=== PATIENT | female | born 1975 | race Caucasian/White ===

== ENCOUNTER 2019-04-05 06:20 | Day surgery (SDC) | payer OTHER, MEDICAID, SELFPAY ==
[2019-04-02 13:48] VITALS: BMI 44.1
[2019-04-05] VITALS (8 sets, daily range): BP systolic 117–157; BP diastolic 72–99; PULSE 62–90; RESP 15–17; TEMP 36–36.4; O2SAT 88–100; BMI 44.0
--- NOTE | 2019-04-05 | PATH_ITS ---
[facility] [place] Accession Number: [id number] . 01 Material submitted: . PART A: cervix - ANTERIOR CERVIX LEEP PART B: cervix - POSTERIOR CERVIX LEEP PART C: cervix - LEFT ANTERIOR CERVIX LEEP PART D: cervix - RIGHT ANTERIOR CERVIX LEEP . 01 Clinical history: . MILD CERVICAL DYSPLASIA . 02 Diagnosis: A. Anterior Cervix, LEEP Biopsy: Focal, mild involvement by low-grade squamous intraepithelial lesion/CARLOS-1. The apparent surgical margins are negative for dysplasia. Negative for high-grade dysplasia and invasive tumor. A very small focus of transformation zone is present in the LEEP biopsy. . B. Posterior Cervix, LEEP, Biopsy: Squamous mucosa with reactive changes; negative for squamous dysplasia or malignancy. Patchy mucosal erosion is present. No transformation zone is identified in this LEEP Biopsy: . C. Left Anterior Cervix, LEEP Biopsy: Predominantly stromal tissue with mucosal erosion and electrocautery artifact. Scant attached squamous mucosa and a focus of detached squamous epithelium are negative for squamous dysplasia or malignancy. Tissue margins are negative for dysplasia or malignancy. . D. Right Anterior Cervix, LEEP Biopsy: Focal cytologic atypia suggestive of, but not diagnostic of, low-grade squamous intraepithelial lesion/CARLOS-1 involves detached squamous epithelial fragments; extensive electrocautery artifact is present and obscuring. Negative for high-grade dysplasia or malignancy. No intact transformation zone is identified in the LEEP biopsy. MRV 04/08/2019 1438 Local . 02 Electronically signed: . Tegan Keene MD, Pathologist NPI- [id number] . 01 Gross description: . (A) Received in formalin, labeled anterior cervix LEEP, is an unoriented piece of cervical tissue (1.7 x 1.0 x 0.3 cm) with flowers-white smooth shiny mucosa. No nodules, masses or lesions are identified. The tissue cannot be oriented; therefore, the resection margin is inked blue. Serially sectioned and entirely submitted in cassette A1. (B) Received in formalin, labeled posterior cervix LEEP, is an unoriented piece of cervical tissue (1.1 x 0.8 x 0.2 cm) with flowers-white smooth shiny mucosa. No nodules, masses or lesions are identified. The tissue cannot be orientated; therefore, the resection margin is inked blue. Serially sectioned and entirely submitted in cassette B1. (C) Received in formalin, labeled left anterior cervix LEEP, is an unoriented piece of cervical tissue (0.8 x 0.5 x 0.2 cm) with flowers-white smooth shiny mucosa. No nodules, masses or lesions are identified. The tissue cannot be oriented; therefore, the resection margin is inked blue. Trisected and entirely submitted in cassette C1. (D) Received in formalin, labeled right anterior cervix LEEP, is a fragment of flowers-white tissue (0.5 x 0.2 x 0.1 cm). Entirely submitted in cassette D1. ([id number]) /MRV 04/07/2019 1846 Local . 02 Pathologist provided ICD-10: N87.0, R87.612 . 02 CPT . 052729, 149434, 420792, 132613 Performed at: 01 [facility] [address], [place], [place] [id number] MD Anthony Cedillo MD Phone: [phone] Performed at: 02 [facility] [address] [place], [place] [id number] MD Mellissa Gonzalez MD Phone: [phone]
[2019-04-05] MEDS: LACTATED RINGERS 1,000 ML 42 ML IV (07:27)
[2019-04-05] MEDS: CEFOTETAN 2 GM/50 ML PIGGYBACK IV (08:00)
--- NOTE | 2019-04-05 08:02 | PM.PREOP ---
Pre-operative Note Interval Note History & Physical reviewed/Exam performed by Physician: Yes Changes to H&P: No
--- NOTE | 2019-04-05 08:18 | SUR.OPER ---
Lithotomy on padded OR bed, head on pillow, arms secured on padded arm boards at <90 degrees abduction. Legs secured in padded yellow fins stirrups.
[2019-04-05] MEDS: BUPIVACAINE 0.5% W/ EPI (PF) VIAL 10 ML INJ (08:22)
--- NOTE | 2019-04-05 08:40 | PM.GYNOP.1 ---
Operative Date/Time/Diagnoses Date of procedure: 04/05/19 Time of procedure: 08:40 Pre-op diagnosis: CARLOS one persistent Post-op diagnosis: same Procedure & Clinicians Procedure: Procedures Operation Date: 04/05/19 07:45 Actual Procedures Side Surgeon p LEEP Procedure Dick Hernández MD Indications: CARLOS one persistent Surgeon: Dick Hernández Anesthesia Type: General Operative Notes Findings: Normal appearing cervix Closure Type: not applicable Specimen(s): other (Cervical tissue anterior posterior and lateral) Estimated blood loss (mL): 50 Blood products transfused: none Procedure in detail: The patient was placed supine upon the operating table and anesthetized. She was then placed in the dorsal lithotomy position and examined under anesthesia. Patient had a normal size uterus. Patient was straight for prepared in usual fashion. The plus the size speculum was set in place. The cervix was visualized. Proper evacuation equipment and loop were obtained. Using cutting current and anterior and posterior portion of the cervix were excised. These were sent separately. Lateral margins were then sent. The area was then fulgurated circumferentially 5 mm out. All bleeding points were meticulously fulgurated. At the end of the procedure there was no bleeding. Specimens were identified and sent for pathologic exam. Speculum was removed and the patient was taken to the recovery room in satisfactory condition Complications: none Post-operative Condition: stable Disposition: PACU Plan for aftercare: Home
--- NOTE | 2019-04-05 08:45 | PM.DS.1 ---
History of Present Illness History of Present Illness Date Patient Seen: 04/05/19 Time Patient Seen: 08:45 Chief complaint: CARLOS one persistent Narrative: The patient is a 43-year-old with persistent CARLOS one of the cervix. Patient desired elimination of this and shows a LEEP procedure. Discharge Providers Provider Discharge Date: 04/05/19 Primary care physician: Jerome Nunez provider: Dick Hernández MD Summary Hospital Course Discharge Diagnosis: CARLOS one Hospital Course: Patient was admitted and taken to surgery. She underwent LEEP removal of CARLOS one. She had full duration of the cervix. Status at Discharge Cognitive/behavioral status at discharge: oriented Functional status at discharge: independent ambulation Overall status at discharge: patient is progressing back to baseline Time Spent with Patient Time spent: Less than 30 minutes Exam Vital Signs (past 8 hours): - 04/05/19 07:19 Temperature 97.4 F L Pulse Rate 86 Respiratory Rate 16 Blood Pressure 143/82 H Pulse Oximetry 96 Oxygen Delivery Method Room Air Narrative Exam Narrative: Minimal vaginal bleeding Discharge Plan Discharge Plan Patient Disposition: Home Discharge Med Rec/Prescriptions Prescriptions: New oxycodone-acetaminophen [Percocet] 5-325 mg tablet 1 tab PO Q4-6H PRN (Reason: pain) Qty: 10 RF: 0 Continued sertraline 50 mg tablet 50 mg PO DAILY RF: 0 lisinopril 10 mg tablet 10 mg PO DAILY RF: 0 omeprazole 40 mg capsule,delayed release(DR/EC) 40 mg PO DAILY RF: 0 Follow up/Referrals: Dick Hernández MD [Physician] - 2 Weeks Discharge Orders: Discharge (Now); Ordered 04/05/19 Ordered By: Dick Hernández Provider Discharge Instructions Diet: Diet as Tolerated Activity: Up ad vanessa No coitus Skin/Wound/Dressing Care Report to your healthcare provider any signs of infection, such as:: chills, fever, increased pain, unusual drainage and unusual redness Dressing: None Visit Report/Discharge Packet Instructions: Loop Electrosurgical Excision (LEEP) Post Operative Inst Stand Alone Forms: Surgery Discharge Discharge Data Attending Provider: Dick Hernández
--- NOTE | 2019-04-05 10:05 | SUR.PHASEI ---
Pt discharged in stable condition. Escorted to ED entrance via [facility] by volunteer.
== END 2019-04-05 10:00 | disposition home or self-care (01) ==
PROC: 0UBC7ZZ Excision of Cervix, Via Natural or Artificial Opening (ICD-10-PCS; CPT 57522; principal; 2019-04-05 07:45)
DX: N87.0 Mild cervical dysplasia (principal)
CPT/HCPCS: 57522; J1100; J1885; J2405; J2704